=== PATIENT | male | born 1980 | race Caucasian/White ===

== ENCOUNTER 2017-11-05 00:20 | Emergency (ER) | payer OTHER ==
[~2017-11-05] VITALS: Ht 172.7 cm; Wt 65.8 kg
[2017-11-05 00:31] VITALS: Ht 172.7 cm; Wt 65.8 kg
[2017-11-05 01:54] LABS: PLATELET COUNT 224 x10^3mcL (130-400); RED CELL DISTRIBUTION WIDTH 12.7 % (11.5-14.5)
[2017-11-05 02:05] LABS: CALCIUM 8.8 mg/dL (8.5-10.1); CARBON DIOXIDE 28.8 mmol/L (21-32); CHLORIDE SERUM 104 mmol/L (98-107); GFR1 > 60 mL/min; GLUCOSE SERUM 93 mg/dL (74-106); POTASSIUM SERUM 3.9 mmol/L (3.5-5.1); SODIUM SERUM 143 mmol/L (136-145)
[2017-11-05 02:08] LABS: BASOPHIL % 4.3 % (0-2)
[2017-11-05 02:10] LABS: ALKALINE PHOSPHATASE 79 U/L (46-116); ALT/SGPT 23 U/L (16-63); AST/SGOT 18 U/L (15-37); BILIRUBIN TOTAL 0.42 mg/dL (0.20-1.00); TOTAL PROTEIN, SERUM 7.2 g/dL (6.4-8.2)
[2017-11-05 02:50] VITALS: BP 109/58
== END 2017-11-05 02:50 | disposition home or self-care (01) ==
LOC: ED 00:20
PROVIDERS: Emergency Medicine
DX: R07.89 Other chest pain (principal); K29.70 Gastritis, unspecified, without bleeding
CPT/HCPCS: 36415

== ENCOUNTER 2018-07-31 19:42 | Emergency (ER) | payer OTHER ==
[~2018-07-31] VITALS: Ht 170.2 cm; Wt 73.0 kg
[2018-07-31 19:49] VITALS: Ht 170.2 cm; Wt 73.0 kg
[2018-07-31 23:25] VITALS: BP 112/77
== END 2018-07-31 23:25 | disposition home or self-care (01) ==
LOC: ED 19:42
DX: M54.2 Cervicalgia (principal); R07.89 Other chest pain
CPT/HCPCS: J1885; Q0092

== ENCOUNTER 2018-12-29 13:19 | Emergency (ER) | payer OTHER ==
[~2018-12-29] VITALS: Ht 170.2 cm; Wt 71.2 kg
[2018-12-29 13:29] VITALS: BP 130/74; Ht 170.2 cm; Wt 71.2 kg
== END 2018-12-29 14:40 | disposition left against medical advice (07) ==
LOC: ED 13:19
DX: Z53.21 Procedure and treatment not carried out due to patient leaving prior to being seen by health care provider (principal)

== ENCOUNTER 2019-10-12 14:37 | Emergency (ER) | payer OTHER ==
[~2019-10-12] VITALS: Ht 170.2 cm; Wt 73.5 kg
[2019-10-12 14:49] VITALS: Ht 170.2 cm; Wt 73.5 kg
[2019-10-12 15:05] LABS: BASOPHIL % 0.6 % (0-2); PLATELET COUNT 237 x10^3mcL (130-400); RED CELL DISTRIBUTION WIDTH 13.3 % (11.5-14.5)
[2019-10-12 15:24] LABS: CALCIUM 8.4 mg/dL (8.5-10.1); CARBON DIOXIDE 29.9 mmol/L (21-32); CHLORIDE SERUM 104 mmol/L (98-107); CREATININE SERUM 1.1 mg/dL (0.7-1.3); GFR1 > 60 mL/min; GLUCOSE SERUM 92 mg/dL (74-106); POTASSIUM SERUM 4.1 mmol/L (3.5-5.1); SODIUM SERUM 140 mmol/L (136-145)
[2019-10-12 15:31] LABS: ALBUMIN 3.9 g/dL (3.4-5.0); ALKALINE PHOSPHATASE 87 U/L (46-116); ALT/SGPT 88 U/L (16-63); AST/SGOT 23 U/L (15-37); TOTAL PROTEIN, SERUM 7.3 g/dL (6.4-8.2)
[2019-10-12 16:28] VITALS: BP 121/61
== END 2019-10-12 16:28 | disposition home or self-care (01) ==
LOC: ED 14:37
DX: R42 Dizziness and giddiness (principal); R11.0 Nausea; R51 Headache; H92.03 Otalgia, bilateral
CPT/HCPCS: 36415; 87804; J0780; J1885

== ENCOUNTER 2020-09-17 14:45 | Emergency (ER) | payer OTHER, SELFPAY ==
[~2020-09-17] VITALS: Ht 170.2 cm; Wt 65.8 kg
[2020-09-17 14:49] VITALS: Ht 170.2 cm; Wt 65.8 kg
[2020-09-17 16:55] VITALS: BP 130/71
== END 2020-09-17 16:55 | disposition home or self-care (01) ==
LOC: ED 14:45
DX: U07.1 COVID-19 (principal)
CPT/HCPCS: U0003